=== PATIENT | female | born 1950 | race Caucasian/White ===

== ENCOUNTER 2017-05-28 07:43 | Day surgery (SDC) | payer OTHER, MEDICARE ==
[2017-05-28] MEDS ORDERED: LIDOCAINE 1% 2 ML INJ ID PRN (08:22)
[2017-05-28] MEDS ORDERED: LR 1,000 ML IV ONE (08:22)
[2017-05-28 08:58] VITALS: TEMP 98.2
--- NOTE | 2017-05-28 09:08 | PDANEPAE ---
ANE History of Present Illness Screening colonoscopy ANE Past Medical History - Cardiovascular History Hx Hypertension: Yes Hx Arrhythmias: No Hx Chest Pain: No Hx Coronary Artery / Peripheral Vascular Disease: No Hx CHF / Valvular Disease: No Hx Palpitations: Yes Cardiovascular History Comment: occational racing then disapates - Pulmonary History Hx COPD: No Hx Asthma/Reactive Airway Disease: No Hx Recent Upper Respiratory Infection: No Hx Oxygen in Use at Home: No Hx Sleep Apnea: Yes Sleep Apnea Screening Result - Last Documented: Positive - Neurologic History Hx Cerebrovascular Accident: No Hx Seizures: No Hx Dementia: No - Endocrine History Hx Diabetes: Yes Endocrine History Comment: on metformin - Renal History Hx Renal Disorders: No - Liver History Hx Hepatic Disorders: No - Neurological & Psychiatric Hx Hx Neurological and Psychiatric Disorders: No - Cancer History Hx Cancer: No - Congenital Disorder History Hx Congenital Disorders: No - GI History Hx Gastrointestinal Disorders: Yes Gastrointestinal History Comment: GERD, colon polps removed 6 or 7 polps - Chronic Pain History Chronic Pain: No - Surgical History Prior Surgeries: csections x2. hysterectomy. gallbladder removal. back surgery- titanium rods ANE Review of Systems Review of Systems: - Exercise capacity METS (RN): 3 METS ANE Patient History - Allergies Allergies/Adverse Reactions: methadone Adverse Reaction (Intermediate, Verified 05/28/17 08:34) Other-Enter Comments - Home Medications Home medications: home medication list seen and reviewed Home Medications: Acetaminophen 05/28/17 [Last Taken 04/27/17] Advil 05/28/17 [Last Taken 05/23/17] Amlodipine Besylate 05/28/17 [Last Taken 05/28/17 06:00] Atorvastatin Calcium 05/28/17 [Last Taken 05/26/17] Excedrin Tablet (*) 05/28/17 [Last Taken 05/24/17] Herbals/Supplements -Info Only 05/28/17 [Last Taken 05/26/17] Hydrochlorothiazide 05/28/17 [Last Taken 05/28/17 06:00] Lisinopril 05/28/17 [Last Taken 05/28/17 06:00] Metformin HCl 05/28/17 [Last Taken 05/27/17] Miralax 17 gm (*) 05/28/17 [Last Taken 05/27/17] Nortriptyline HCl 05/28/17 [Last Taken 05/26/17] Omeprazole 05/28/17 [Last Taken 05/24/17] Potassium Chloride 05/28/17 [Last Taken 05/27/17] - NPO status NPO Since - Liquids (Date): 05/28/17 NPO Since - Liquids (Time): 00:00 NPO Since - Solids (Date): 05/27/17 NPO Since - Solids (Time): 10:00 - Smoking Hx Smoking Status: Never smoked ANE Labs/Vital Signs - Vital Signs Blood Pressure: 176/96 Heart Rate: 85 Respiratory Rate: 12 O2 Sat (%): 93 Height: 147.32 cm Weight: 96.615 kg ANE Physical Exam - Airway Neck exam: FROM Mallampati Score: Class 2 Mouth exam: normal dental/mouth exam - Pulmonary Pulmonary: no respiratory distress - Cardiovascular Cardiovascular: regular rate and rhythym - ASA Status ASA Status: III ANE Anesthesia Plan Anesthesia Plan: MAC (With poss IV GA)
--- NOTE | 2017-05-28 09:10 | PDGENHP ---
History & Physical Chief Complaint: hx polyps History of Present Illness: 67 year old female with history of polyps presents for surveillance colonoscopy. Pertinent Past, Social, Family History: PMHx; DM. Mallipatti: 2. ASA: 3 Relevant Physical Exam: HEENT: anicteric. CV: RRR +s1s2. lungs: CTAB. Abd: soft, nt, +BS Cardiorespiratory Assessment: ASA 3
[2017-05-28] MEDS ORDERED: ONDANSETRON 4 MG/2 ML VIAL IVP PRN (09:16)
[2017-05-28] MEDS ORDERED: LIDOCAINE 2% 5 ML SDV ONE (09:16)
[2017-05-28] MEDS ORDERED: PROPOFOL/EMULSION 500 MG/50 ML BOTTLE IV ONE (09:16)
[2017-05-28] MEDS ORDERED: fentaNYL 100 MCG/2 ML INJ IVP PRN (09:16)
[2017-05-28] MEDS ORDERED: NALOXONE HCL 0.4 MG/ML INJ IVP PRN (09:16)
[2017-05-28 09:34] LABS: ANION GAP 15 mEq/L (8-16); CARBON DIOXIDE 23 mEq/l (22-31); CHLORIDE 105 mEq/L (97-110); CREATININE 0.6 mg/dL (0.6-1.0); GLOMERULAR FILTRATION RATE > 60; GLUCOSE 107 mg/dL (70-100); POTASSIUM 3.5 mEq/L (3.5-5.2); SODIUM 143 mEq/L (134-144)
[2017-05-28] MEDS ORDERED: INDOMETHACIN 50 MG SUPP PR PRN (09:44)
--- NOTE | 2017-05-28 09:44 | POSTOPPROG ---
Post Op Note Date of Operation: 05/28/17 Surgeon: Sudhakar Boyer Anesthesia: IV Sedation Pre-op Diagnosis: phx Post-op Diagnosis: + polyps, diverticulosis Indication: phx polyps Procedure: colonoscopy with bx, snare polypectomy Findings: + polyps, diverticulosis Inf/Abcess present in the surg proc area at time of surgery?: No Specimen(s): cecal polyp x 1 hf x 2
[2017-05-28] MEDS ORDERED: NS 500 ML IV SCH (09:45)
--- NOTE | 2017-05-28 09:49 | POSTANESTH ---
Post Anesthetic Evaluation Cardiovascular Status: Normal, Stable Respiratory Status: Normal, Stable Level of Consciousness/Mental Status: Can Participate in Eval Pain Control: Adequate, Prn Tx Ordered Nausea/Vomiting Control: Adequate, Prn Tx Ordered Complications Possibly Related to Anesthesia: None Noted
--- NOTE | 2017-05-28 10:22 | GPN ---
[f rep st] PROCEDURE NOTE DATE OF PROCEDURE: 05/28/2017 PROCEDURE: Colonoscopy with snare polypectomy, biopsy. INDICATION: The patient is a 67-year-old female with a personal history of polyps who presents for surveillance colonoscopy. CONSENT: Risks, benefits and alternatives of the procedure were discussed in great detail with the patient. Risks of infection, bleeding, perforation and sedation were discussed. All questions answered. Informed consent was obtained. MEDICATIONS: Propofol. Please see Anesthesia's note for details. ESTIMATED BLOOD LOSS: Insignificant. COLONOSCOPIC EVALUATION: A rectal exam was performed and no palpable masses felt. The Olympus colonoscope was introduced into the rectum and advanced to cecum, where the ileocecal valve and appendiceal orifice were seen. The quality of prep was good. The colonic mucosa was carefully examined both on insertion and withdrawal of the scope. A 2 mm sessile polyp was seen in the cecum and removed by biopsy forceps. In the ascending colon, a 4 mm polyp was seen and removed by snare polypectomy. The polyp was completely resected, but not retrieved. In the hepatic flexure, 2 polyps were seen of 4-5 mm and removed by snare polypectomy. The patient had diverticulosis from the sigmoid colon to the transverse colon. IMPRESSION: 1. Colonic polyp x 4. One polyp was resected but not retrieved 2. Diverticulosis. RECOMMENDATION: 1. Repeat colonoscopy in 3 years. 2. Fiber supplementation. 3. Continue previous medications. /[id number]/MODL MTDD
[2017-05-28 11:19] VITALS: BP 156/88; PULSE 84; RESP 17; O2SAT 92
== END 2017-05-28 10:45 | disposition home or self-care (01) ==
LOC: FSGY 07:43
PROVIDERS: ATTEND Internal Medicine Gastroenterology
PROC: 0DBK8ZX Excision of Ascending Colon, Via Natural or Artificial Opening Endoscopic, Diagnostic (ICD-10-PCS; principal; 2017-05-28 09:00)
PROC: 0DBH8ZX Excision of Cecum, Via Natural or Artificial Opening Endoscopic, Diagnostic (ICD-10-PCS; principal; 2017-05-28 09:00)
DX: Z12.11 Encounter for screening for malignant neoplasm of colon (principal); D12.0 Benign neoplasm of cecum; D12.2 Benign neoplasm of ascending colon; K57.30 Diverticulosis of large intestine without perforation or abscess without bleeding; K21.9 Gastro-esophageal reflux disease without esophagitis; Z86.010 Personal history of colon polyps; Z80.0 Family history of malignant neoplasm of digestive organs
CPT/HCPCS: J2704